=== PATIENT | male | born 1965 | race Caucasian/White ===

== ENCOUNTER 2020-02-04 08:56 | Day surgery (SDC) | payer OTHER ==
[2020-02-01 08:54] LABS: HEMATOCRIT 46.3 % (42.0-54.0); HEMOGLOBIN 15.5 g/dL (13.5-17.5); MCH 30.6 pg (26.0-34.0); MCHC 33.5 g/dL (31.0-37.0); MCV 91.3 fL (80.0-100.0); MEAN PLATELET VOLUME 10.1 fL (7.4-10.4); RBC 5.07 10x6/uL (4.20-6.10); RDW 12.5 % (11.5-14.5); WBC 6.5 10x3/uL (4.8-10.8)
[2020-02-01 09:09] LABS: CARBON DIOXIDE 30.6 mmol/L (21.0-32.0); CREATININE - SERUM 1.2 mg/dL (0.6-1.3); POTASSIUM - SERUM 3.6 mmol/L (3.5-5.1)
[~2020-02-04] VITALS: Ht 175.3 cm; Wt 106.6 kg
[~2020-02-04 08:56] MED LIST: ABILIFY10 MG PO; FLUTICASONE PRO16 GM NASAL; IBUPROFEN800 MG PO; LISINOPRIL-HCT1 EAC7 PO; NORVASC10 MG PO; SEROQUEL100 MG PO
[2020-02-04 09:29] VITALS: BP 130/78; Ht 175.3 cm; Wt 106.6 kg
[2020-02-04] MEDS ORDERED: HYDROCODON-ACE1 EA10 PO (12:07)
--- NOTE | 2020-02-04 15:08 | NUR ---
1347 IV DC'D. CATHETER TIP INTACT. NO BLEEDING AT SITE. BANDAID APPLIED. REVIEWED DISCHARGE INSTRUCTIONS WITH PT AND HIS WHO BOTH VOICE UNDERSTANDING OF INSTRUCTIONS.
--- NOTE | 2020-02-05 16:07 | OP ---
PATIENT NAME: FREDRICK PAYNE MEDICAL RECORD: [id number] :69 LOCATION:[facility] ADMISSION DATE: SURGEON: SHY DOOLEY MD DATE OF OPERATION: 02/04/2020 PREOPERATIVE DIAGNOSIS: Rotator cuff tear of the left shoulder with impingement syndrome. POSTOPERATIVE DIAGNOSIS: Rotator cuff tear of the left shoulder with impingement syndrome. PROCEDURE: 1. Arthroscopic rotator cuff repair of the left shoulder. 2. Arthroscopic distal clavicle excision of the left shoulder done through separate incision - 1 cm. 3. Arthroscopic subacromial decompression, acromioplasty, and bursectomy. SURGEON: Shy Dooley MD ANESTHESIA: General. INTRAOPERATIVE COMPLICATIONS: None. SUMMARY OF PATHOLOGIC FINDINGS: The patient was indeed found to have full thickness rotator cuff tearing with a laminar tear affect requiring multiple suture anchors for repair. The patient was also found very downward sloping acromion with substantial excoriation of the coracoacromial ligament likely causing attritional tear of the rotator cuff. OPERATIVE SUMMARY IN DETAIL: After obtaining the appropriate preoperative orthopedic surgery consent as well as anesthetic consultation, evaluation and clearance, the patient was brought to the operating room and placed on the operating table in a supine position. After adequate general laryngeal mask airway was administered, the patient was placed in right lateral decubitus position. All pressure points were well padded to include down leg peroneal pad as well as the axillary roll. The patient was held firmly to the operating table using the vacuum pack suction system. Left upper extremity and shoulder were then prepped and draped in routine sterile fashion. The arm was held in the Arthrex traction boom at 30 degrees of forward flexion, 30 degrees of abduction, 10 pounds of traction laterally. At this point, appropriate timeout was taken and agreed upon by all given the patient's unique identifiers. Arthroscopy was established in the glenohumeral joint from the posterior portal. Anterior portal was established in the anterior safe interval. Direct arthroscopic visualization findings were noted. A transrotator cuff portal was created for decortication of the insertion of the supraspinatus tendinous footprint on the greater tuberosity. The articular surface itself was well maintained. Attention was turned to the subacromial space. While the subacromial space, [place] tissue ablation system was utilized to denude the undersurface of the acromion of all soft tissue elements and release the coracoacromial ligament. A 5-0 barrel bur was used to perform acromioplasty at the level of acromioclavicular joint. Next, under separate arthroscopic visualization anteriorly approached the distal clavicle was excised for 1 cm. Having completed this, attention returned to the rotator cuff. Further decortication was carried out for reapproximation of the supraspinatus tendon. OPERATIVE REPORT [id number] FREDRICK PAYNE The tendon was then reapproximated back to its insertion site nicely using 2 #5 [place] with 2 vertical mattress ripstop sutures. These pulled the rotator cuff back to its original insertion site. Having completed this, arthroscopy portals were closed in routine fashion with 4-0 Prolene. Sterile dressings were applied. The patient was awakened and taken to recovery room in stable condition. All final needle and sponge counts were correct. TRANSINT:[id number] Voice Confirmation ID: [id number] DOCUMENT ID: [id number] SOUMYA MOORE, SHY KAY at 1607 CC: [id number] DICTATION DATE: 02/04/20 1216 TRACTOR MECHANIC HELPER: 02/04/20 2148 [facility] 02/04/20 [facility] [address] [place] [address]
== END 2020-02-04 14:10 | disposition home or self-care (01) ==
LOC: D.OPS 08:56 → D.PAN 18:15
PROVIDERS: Anesthesiology; ATTEND Orthopaedic Surgery
DX: M75.112 Incomplete rotator cuff tear or rupture of left shoulder, not specified as traumatic (principal); M75.42 Impingement syndrome of left shoulder; M25.512 Pain in left shoulder; M13.812 Other specified arthritis, left shoulder